=== PATIENT | male | born 1950 ===

== ENCOUNTER 2025-06-03 12:25 | Outpatient (CLI) | payer OTHER, SELFPAY ==
--- NOTE | 2025-06-03 12:30 | RT.EKG_ITS ---
APPROVED REPORT Exam: Resting ECG Reason for Exam: Chest Pain Patient Location: O HR:50 bpm ECG Measurements Heart Rate 50 AXIS MN 281 P 72 QRSd 127 QRS -72 QT 493 T 59 QTc 450 Conclusion Sinus rhythm...normal P axis, V-rate 50- 99 Prolonged MN interval...MN >220, V-rate 50- 90 Left anterior fascicular block Late transition
== END 2025-06-03 12:26 | disposition home or self-care (01) ==
PROVIDERS: Visit Provider Chiropractor
DX: R07.9 Chest pain, unspecified (principal)
CPT/HCPCS: 93005; 93010